=== PATIENT | male | born 1965 | race Caucasian/White ===

== ENCOUNTER → 2016-10-18 | Outpatient (CLI) | payer BC ==
[2014-10-29 10:41] VITALS: BP 116/79
[~2016-10-18] MED LIST: CYCL10TA2 PO; DOCU-109 PO; IBUP-1027 PO; MELO15TA23 PO; OXYC-323 PO; Oxycodone Hcl/Acetaminophen PO
--- NOTE | 2016-10-18 15:25 | RAD ---
MRI Lumbar Spine without contrast History: Low back pain with left buttock and leg pain for 2 weeks Technique: Multiplanar, multi sequential noncontrast MR imaging was performed of the lumbar spine. Contrast: None Comparison: None Findings: Lumbar vertebral body stature and AP alignment are adequate. There is [id number] degenerative disc disease L1-2, mild disc desiccation L3-4 to L5-S1. Conus terminates at L1-2. There are posterior annular tears L3-4 to L4-5, small anterior annular tears L2-3 through L4-5. Mild endplate edema at L5-S1 and L2-3 is probably reactive/degenerative in etiology. L1-L2: Neural foramina and spinal canal are adequate. L2-L3: There is mild facet degenerative change and buckling of the ligamentum flavum. Neural foramina and spinal canal are adequate. L3-L4: There is mild buckling of the ligamentum flavum and facet degenerative change. There is minimal posterior bulge. There is mild narrowing of the right neural foramen, left neural foramen adequate. There is mild narrowing of the lateral recesses greater on the right. L4-L5: There is a shallow posterior central protrusion. There is mild buckling of the ligamentum flavum and facet degenerative change. There is mild narrowing of the right neural foramen, left neural foramen overall adequate. Spinal canal is not significantly narrowed. L5-S1: There is a shallow protrusion greater in the left paracentral region at apparently an extrusion extending below the intervertebral disc space in the left lateral recess better appreciated on the sagittal T1 sequence, mild indentation upon the ventral thecal sac in the left lateral recess. There is [id number] narrowing of the far left lateral recess and contact of the descending left S1 nerve root. Extrusion is estimated at 7 mm transverse by 4 mm AP by approximately 9 mm CC. There is mild facet hypertrophic change. There is moderate narrowing of the right neural foramen, left neural foramen overall adequate. Impression: 1. Shallow protrusion and small extrusion extending below the L5-S1 intervertebral disc space in the left lateral recess contacts the descending left S1 nerve root. 2. There is [id number] degenerative disc disease at L1-2, minimally at more inferior levels. Electronically signed by: Noe Diaz MD (10/18/2016 3:21 PM)
== END | disposition home or self-care (01) ==
LOC: MRI 14:12
PROVIDERS: ATTEND Neurological Surgery
DX: M51.36 Other intervertebral disc degeneration, lumbar region (principal)
CPT/HCPCS: 72148

== ENCOUNTER → 2016-10-19 | Outpatient (CLI) | payer BC ==
[2014-10-29 10:41] VITALS: BP 116/79
[~2016-10-19] MED LIST changes: +IOHEXOL 180 MG/ML 10 ML VIAL. ONE; +methylPREDNISolone ACETATE 40 MG/ML VIAL. ONE; +methylPREDNISolone ACETATE 80 MG/ML VIAL. ONE
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
== END | disposition home or self-care (01) ==
LOC: PNCL 09:47
PROVIDERS: ATTEND Anesthesiology
DX: M51.16 Intervertebral disc disorders with radiculopathy, lumbar region (principal); F17.210 Nicotine dependence, cigarettes, uncomplicated; H91.90 Unspecified hearing loss, unspecified ear; M19.90 Unspecified osteoarthritis, unspecified site; Z83.3 Family history of diabetes mellitus; Z87.39 Personal history of other diseases of the musculoskeletal system and connective tissue
CPT/HCPCS: 62323; J1030; J1040

== ENCOUNTER → 2016-11-02 | Outpatient (CLI) | payer BC ==
[2014-10-29 10:41] VITALS: BP 116/79
[~2016-11-02] MED LIST changes: -IOHEXOL 180 MG/ML 10 ML VIAL. ONE; +IOHEXOL 180 MG/ML 20ML VIAL. ONE
== END | disposition home or self-care (01) ==
LOC: PNCL 08:39
PROVIDERS: ATTEND Anesthesiology
DX: M51.16 Intervertebral disc disorders with radiculopathy, lumbar region (principal); F17.200 Nicotine dependence, unspecified, uncomplicated; Z72.89 Other problems related to lifestyle; Z87.39 Personal history of other diseases of the musculoskeletal system and connective tissue; Z83.3 Family history of diabetes mellitus; Z85.3 Personal history of malignant neoplasm of breast
CPT/HCPCS: 62323; J1030; J1040

== ENCOUNTER → 2016-11-23 | Outpatient (CLI) | payer BC ==
[2014-10-29 10:41] VITALS: BP 116/79
[~2016-11-23] MED LIST changes: +ASPI-482 PO; +IOHEXOL 180 MG/ML 10 ML VIAL. ONE; -IOHEXOL 180 MG/ML 20ML VIAL. ONE
--- NOTE | 2016-11-24 03:27 | PAIN ---
DATE OF SERVICE: 11/23/2016 PROGRESS NOTE FOR PAIN CLINIC DIAGNOSIS: Lumbar radiculopathy with lumbar degenerative disk disease, lumbar herniated disk. HISTORY OF PRESENT ILLNESS: The patient is a 51-year-old male who returns for followup status post lumbar epidural steroid injections x 2. The patient reports he has done very well, about 90% improvement in his low back and left lower extremity pain. The patient reports his pain is 0-1 on a scale of 10 at its worst. He has been increasing his activity with greater ease and comfort, feels much better and there is only some dull aching pain left occasionally in the low back, sometimes on the right side, but not into the right leg. His left leg is doing almost 100% better overall, the patient reports it awakens him from sleep, but only very rarely. He sleeps 6-8 hours each night and is very pleased with the progress. He is becoming more active by doing some gardening where he is bending and stooping, picking things up, planting some onions and had good success with the decreased pain and increased activity and is very pleased. The patient reports no new motor or sensory deficits, no new bowel or bladder incontinence or other complaints. PHYSICAL EXAMINATION: VITAL SIGNS: The patient's blood pressure is 116/81, pulse 87, respirations 18, temperature is 98.1 degrees Fahrenheit, weight is 174 pounds. GENERAL: The patient is awake, alert, oriented, appropriate, has a very pleasant demeanor. HEENT: Shows normocephalic, atraumatic. Extraocular movements are intact and symmetrical. Oral cavity, mucous membranes are moist and pink. Dentition is intact. NECK: Shows anterior throat supple without palpable lymphadenopathy noted. Swallow reflex is symmetrical. CHEST: Shows normal on inspection. Breath sounds are clear to auscultation bilaterally. HEART: Shows S1 and S2 clear. ABDOMEN: Soft, nontender, nondistended. No palpable organomegaly is noted. No rebound or guarding demonstrated. BACK: Shows spine grossly in the midline, some very mild tenderness with palpation in the lower lumbar distribution of the paraspinous muscles, but they appear roughly symmetrical on inspection. Full rotational motion of the cervical spine, both laterally, is greater than 10 degrees right and left as well as extension greater than 10 degrees, forward flexion 45 degrees without exacerbation of pain. No tenderness over the spinous processes, sacrum or sacroiliac regions. EXTREMITIES: Lower extremities show deep tendon reflexes at 2+ in the patellar and 1+ tendo calcaneus tendons, are equal. Motor exam is strong with dorsiflexion, extension, quadriceps and hamstring flexion rated at 5/5 and symmetrical. Peripheral pulses are 2+ posterior tibial. No peripheral edema is noted. PLAN: Options were discussed with the patient. We will hold on any further injections at this time as the patient is doing much better. We will encourage him to increase his activity as tolerated. The patient will follow up on as needed basis at this time. If the pain begins to return, we discussed returning before it gets back to its baseline level to try another injection if necessary. The patient understands and agrees, will increase his activity level and follow up as scheduled. STEVEN REDD MD DR: JAZZY/cali JOB#: [id number] / [id number]
== END | disposition home or self-care (01) ==
LOC: PNCL 08:46
PROVIDERS: ATTEND Anesthesiology
DX: M54.16 Radiculopathy, lumbar region (principal); M47.896 Other spondylosis, lumbar region
CPT/HCPCS: 99212; J1030; J1040